=== PATIENT | female | born 1990 | race American Indian/Alaskan Native ===

== ENCOUNTER 2020-01-30 20:36 | Emergency (ER) | payer SELFPAY ==
--- NOTE | 2020-01-30 20:44 | Emergency Department Report ---
Blank Doc - Documentation Documentation: 30-year-old female that presents with abdominal pain and n/v. This initial assessment/diagnostic orders/clinical plan/treatment(s) is/are subject to change based on patient's health status, clinical progression and re- assessment by fellow clinical providers in the ED. Further treatment and workup at subsequent clinical providers discretion. Patient/guardians urged not to elope from the ED as their condition may be serious if not clinically assessed and managed. Initial orders include: 1- Patient sent to [facility] for further evaluation and treatment 2- labs 3- UA
[2020-01-30 21:29] LABS: Bacteria,Urine 1+ /HPF (Negative); Bilirubin,Urine NEG (Negative); Blood,Urine NEG (Negative); Color,Urine Yellow (Yellow); Mucus,Urine 3+ /HPF; Urobilinogen,Urine < 2.0 mg/dL (<2.0)
[2020-01-30 22:19] LABS: Basophils % (Auto) 0.5 % (0.0-1.8); Eosinophils # (Auto) 0.2 K/mm3 (0.0-0.4); Eosinophils % (Auto) 2.8 % (0.0-4.3); Hematocrit 39.3 % (30.3-42.9); Hemoglobin 13.1 gm/dl (10.1-14.3); Lymphocytes # (Auto) 3.4 K/mm3 (1.2-5.4); Lymphocytes % (Auto) 51.9 % (13.4-35.0); Mean Corpuscular HGB Conc 33 % (30-34); Mean Corpuscular Volume 93 fl (79-97); Monocytes # (Auto) 0.5 K/mm3 (0.0-0.8); Monocytes % (Auto) 7.8 % (0.0-7.3); Platelet Count 238 K/mm3 (140-440); Red Blood Count 4.21 M/mm3 (3.65-5.03); Red Cell Distribution Width 14.2 % (13.2-15.2)
[2020-01-30 22:39] LABS: Alanine Aminotransferase 14 units/L (7-56); Albumin 4.1 g/dL (3.9-5); BUN/Creatinine Ratio 26; Blood Urea Nitrogen 13 mg/dL (7-17); Calcium 9.2 mg/dL (8.4-10.2); Hemolysis Index 10
[2020-01-31] MEDS ORDERED: FAMOTIDINE 20 MG/2 ML INJ IV ONE (02:16)
[2020-01-31] MEDS ORDERED: DICYCLOMINE 20 MG TAB PO ONE (02:16)
[2020-01-31] MEDS ORDERED: SODIUM CHLORIDE 0.9% 1000 ML 1,000 ML IV ONE (02:16)
[2020-01-31] MEDS ORDERED: ONDANSETRON 4 MG/2 ML INJ IV ONE (02:16)
--- NOTE | 2020-01-31 06:37 | Emergency Department Report ---
<PIO PARSONS - Last Filed: 01/31/20 06:57> ED Abdominal Pain HPI - General Chief Complaint: Abdominal Pain Stated Complaint: STOMACH PAIN Time Seen by Provider: 01/30/20 20:43 Source: patient Mode of arrival: Ambulatory Limitations: No Limitations - History of Present Illness Initial Comments: Patient is a 30-year-old female who presented to the ED with acute onset persistent diffuse abdominal pain with intractable nausea and vomiting and diarrhea for the last 4 days. Patient states that in the last 12 hours she has had multiple episodes of hematochezia as well with blood clots mixed with stool. Patient states that her symptoms began after eating some sausages about 5 days ago, and that these symptoms have been worsening daily. Patient states that she has not been able to keep anything down in the last 8 hours because of persistent nausea and vomiting. Patient denies dizziness, fever, chills, dysuria, urinary frequency and urgency, vaginal bleeding, vaginal discharge, back pain, chest pain, shortness of breath, syncope or headache. MD Complaint: abdominal pain, other (nausea, vomiting, diarrhea and ehmatochezia) -: Sudden, days(s) (4) Location: diffuse Radiation: none Migration to: no migration Severity: severe Severity scale (0 -10): 8 Quality: cramping, sharp Consistency: constant Improves With: nothing Worsens With: nothing Context: possible food poisoning Associated Symptoms: denies other symptoms, nausea, vomiting, diarrhea, hematochezia, anorexia. denies: fever, chills, constipation, dysuria, hematemesis, melena, hematuria - Related Data LMP Date: 01/28/20 Previous Rx's Medication Instructions Recorded Last Taken Type Dicyclomine [Bentyl] 20 mg PO QID PRN #40 tablet 01/31/20 Unknown Rx Ondansetron [Zofran Odt] 4 mg PO Q8HR PRN #20 tab.rapdis 01/31/20 Unknown Rx Allergies Allergy/AdvReac Type Severity Reaction Status Date / Time morphine Allergy Shortness Verified 01/30/20 20:43 of Breath ED Review of Systems Constitutional: denies: chills, fever Eyes: denies: eye pain, eye discharge, vision change ENT: denies: ear pain, throat pain Respiratory: denies: cough, shortness of breath, wheezing Cardiovascular: denies: chest pain, palpitations Endocrine: no symptoms reported Gastrointestinal: denies: abdominal pain, nausea, diarrhea Genitourinary: denies: urgency, dysuria, discharge Musculoskeletal: denies: back pain, joint swelling, arthralgia Skin: denies: rash, lesions Neurological: denies: headache, weakness, paresthesias Psychiatric: denies: anxiety, depression Hematological/Lymphatic: denies: easy bleeding, easy bruising ED Past Medical Hx - Past Medical History Previous Medical History?: No - Surgical History Past Surgical History?: No - Social History Smoking Status: Current Every Day Smoker - Medications Home Medications: Home Medications Medication Instructions Recorded Confirmed Last Taken Type Dicyclomine [Bentyl] 20 mg PO QID PRN #40 tablet 01/31/20 Unknown Rx Ondansetron [Zofran Odt] 4 mg PO Q8HR PRN #20 tab.rapdis 01/31/20 Unknown Rx ED Physical Exam - General Limitations: No Limitations General appearance: alert, in no apparent distress - Head Head exam: Present: atraumatic, normocephalic, normal inspection - Eye Eye exam: Present: normal appearance, PERRL, EOMI Pupils: Present: normal accommodation - ENT ENT exam: Present: normal exam, normal orophraynx, mucous membranes moist, TM's normal bilaterally, normal external ear exam - Neck Neck exam: Present: normal inspection, full ROM. Absent: tenderness, lymphadenopathy - Respiratory Respiratory exam: Present: normal lung sounds bilaterally. Absent: respiratory distress, wheezes, rales, rhonchi, stridor, chest wall tenderness, accessory muscle use, decreased breath sounds, prolonged expiratory - Cardiovascular Cardiovascular Exam: Present: regular rate, normal rhythm, normal heart sounds. Absent: systolic murmur, diastolic murmur, rubs, gallop - GI/Abdominal GI/Abdominal exam: Present: soft, tenderness (Palpable diffuse abdominal tenderness), normal bowel sounds, hyperactive bowel sounds. Absent: guarding, rebound - Extremities Exam Extremities exam: Present: normal inspection, full ROM, normal capillary refill - Back Exam Back exam: Present: normal inspection, full ROM. Absent: tenderness, CVA tenderness (R), CVA tenderness (L), muscle spasm, paraspinal tenderness - Neurological Exam Neurological exam: Present: alert, oriented X3, CN II-XII intact, normal gait, reflexes normal - Psychiatric Psychiatric exam: Present: normal affect, normal mood - Skin Skin exam: Present: warm, dry, intact, normal color. Absent: rash ED Medical Decision Making - Lab Data Result diagrams: 01/30/20 22:05 01/30/20 22:05 - Medical Decision Making This is a 30-year-old female who presented to the ED with acute onset persistent diffuse abdominal pain with intractable nausea and vomiting and diarrhea for the last 4 days. Patient states that in the last 12 hours she has had multiple episodes of hematochezia as well with blood clots mixed with stool. Patient states that her symptoms began after eating some sausages about 5 days ago, and that these symptoms have been worsening daily. Patient states that she has not been able to keep anything down in the last 8 hours because of persistent nausea and vomiting. In the ED, patient is alert and oriented x3 and is not in distress but appears to be in pain. Patient was treated for pain in the ED as well as nausea and vomiting. Lab test results were reviewed and are all nonactionable. Abdomen pelvis CT scan with contrast was ordered and is currently pending as at shift change at 0700 hrs. On reevaluation, patient's pain is well controlled as well as nausea and vomiting with medications and IV fluids. Patient care transferred to Ms. Santos Gross PA-C at change at 0700 hrs. She shall review the imaging report and disposition the patient appropriately. - Differential Diagnosis Appendicitis; Colitis; Gastroenterities; UTI; Hemorrhoids ED Disposition Clinical Impression: Abdominal pain Qualifiers: Abdominal location: generalized Qualified Code(s): R10.84 - Generalized abdominal pain Disposition: - TO HOME OR SELFCARE Is pt being admited?: No Does the pt Need Aspirin: No Condition: Stable Instructions: Acute Nausea and Vomiting (ED), Abdominal Pain (ED) Prescriptions: Dicyclomine [Bentyl] 20 mg PO QID PRN #40 tablet PRN Reason: abdominal pain Ondansetron [Zofran Odt] 4 mg PO Q8HR PRN #20 tab.rapdis PRN Reason: Nausea Referrals: PRIMARY CARE, [Primary Care Provider] - 3-5 Days [facility] [Provider Group] - 3-5 Days <SANTOS GROSS - Last Filed: 01/31/20 08:00> ED Review of Systems ROS: Stated complaint: STOMACH PAIN Other details as noted in HPI ED Course Vital Signs 01/30/20 20:41 Temperature 98.9 F Pulse Rate 80 Respiratory 18 Rate Blood Pressure 148/68 O2 Sat by Pulse 99 Oximetry ED Medical Decision Making - Lab Data Result diagrams: 01/30/20 22:05 01/30/20 22:05 - Medical Decision Making CT abdomen shows ruptured ovarian cysts, otherwise no other acute findings are noted. Patient given prescriptions for Zofran and Bentyl for home. Also recommend patient follow-up with gastroenterology within 3 to 5 days. Discussed strict return precautions in detail with patient who verbalizes understanding. Critical care attestation.: If time is entered above; I have spent that time in minutes in the direct care of this critically ill patient, excluding procedure time.
--- NOTE | 2020-01-31 07:36 | Cat Scan Report ---
CT of the abdomen and pelvis with contrast INDICATION: Abdominal pain with nausea and vomiting x4 days COMPARISON: None FINDINGS: Lung bases are clear. The liver, spleen, pancreas, adrenal glands and kidneys all appear no rmal. No kidney stone or pyelonephritis. No definite gallbladder or biliary tree abnormality. No flui d or adenopathy in the upper abdomen. Appendix is seen in the midabdomen and is normal. Small umbilic al hernia contains fat. CT of the pelvis shows no uterine or adnexal masses. There is a partially collapsed left ovarian cyst however with minimal surrounding fluid. No adenopathy is seen. There is no evidence of bowel obstruc tion and no gastroenteritis is seen. No skeletal abnormality. IMPRESSION: Small ruptured left ovarian cyst. Otherwise negative study with no inflammatory process o r bowel obstruction. Automated exposure control was utilized to diminish radiation dose. Signer Name: Rashawn Wolfe MD Signed: 01/31/2020 7:31 AM Workstation Name: [id number]
[2020-01-31 08:06] VITALS: BP 144/68
--- NOTE | 2020-01-31 08:53 | Ultrasound Report ---
ULTRASOUND ABDOMEN, LIMITED (RIGHT UPPER QUADRANT) INDICATION: pain. COMPARISON: None available. FINDINGS: Pancreas: Visualized portion shows no significant abnormality. Liver: Normal. Gallbladder: Normal. Bile ducts: Normal. Common Bile Duct measures 2 mm. Free fluid: None. Additional Findings: None. IMPRESSION: Unremarkable limited abdominal ultrasound. Signer Name: Alessandro Juárez MD Signed: 01/31/2020 8:49 AM Workstation Name: [id number]
== END 2020-01-31 09:25 | disposition home or self-care (01) ==
LOC: ED 20:36
DX: R10.84 Generalized abdominal pain (principal); R11.2 Nausea with vomiting, unspecified; F17.200 Nicotine dependence, unspecified, uncomplicated
CPT/HCPCS: 36415; 74177; 76705; 80053; 81001; 83690; 84703; 85025; 96361; 96374; 96375; 99284; J2405; J7030; Q9967